=== PATIENT | female | born 1950 | race Caucasian/White ===

== ENCOUNTER → 2017-09-13 | Day surgery (SDC) | payer OTHER ==
[~2017-09-13] VITALS: Ht 167.6 cm; Wt 99.0 kg
[~2017-09-13] MED LIST: ACETAMINOPHEN 1000 MG/100 ML 100 ML IV ONE; ALPR.5 PO; ASPI81TA23 PO; CHLORHEXIDINE GLUCONATE 2 % 1 PACK (2 CLOTHS) TOPICAL PRN; DEXAMETHASONE SOD PHOS 4 MG/ML VIAL IV ONE; GLYCOPYRROLATE 1 MG/5 ML SYRINGE IV PUSH ONE; KETOROLAC TROMETHAMINE 30 MG/ML (IVP) VIAL IV PUSH ONE; LACTATED RINGER'S 1000 ML IV PRN; LIDOCAINE HCL 1% PF 5 ML SYRINGE OTHER ONE; METO25TA3 PO; METOPROLOL TARTRATE 25 MG TAB PO PRN; MIDAZOLAM HCL 2 MG/2 ML VIAL ONE; NEOSTIGMINE 5 MG/5 ML SYRINGE IV PUSH ONE; OMEP40CA2 PO; ONDANSETRON HCL 4 MG/2 ML VIAL IV PUSH ONE; ONDANSETRON HCL 4 MG/2 ML VIAL ONE; PERC5TAB12 PO; POVIDONE IODINE 5% (ANTISEPSIS KIT) 4 APPLICATIONS EACH NARE PRN; PROMETHAZINE INJ 25 MG/ML VIAL ONE; PROPOFOL 200 MG/20 ML AMP IV ONE; ROCURONIUM INJ 50 MG/5 ML SYRINGE IV PUSH ONE; SODIUM CHLORID 0.9% 500 ML IV PRN; ceFAZolin 1,000 MG/NS 100 ML IV SCH
[2017-09-13 09:25] VITALS: PULSE 66
--- NOTE | 2017-09-13 09:44 | PD.OP ---
Operative Report Date of Surgery: Sep 13, 2017 Preoperative Diagnosis: (1) Left ovarian cyst Postoperative Diagnosis: (1) Torsion of left ovary and ovarian pedicle (2) Left ovarian cyst Procedure: laparoscopy bilateral salpingo-oophorectomy Anesthesia: VIRIDIANA Giordano Surgeon: Erma Guzman Retail Selling Specialist(s): Jaleel Resident Surgeon: n/a Operation and Findings: indications: patient had left ovarian cyst of [address] done for other reasons, and remained unchanged for three months on ultrasound done serially. The patient was asymptomatic. Findings: Simple left ovarian cyst with clear fluid drained upon bagging the specimen. The fluid was sent with the ovary for pathology. Right tube and ovary and left tube appeared normal, as did the pelvis to laparoscopic view, Uterus retroverted and sounds to 8 cm. Photos taken. Procedure: The patient was placed supine on the operating room table for induction of general anesthesia with intubation. She was then positioned in low stirrups with SCDs. After prep, draping and time-out, an open-sided speculum was placed in the vagina. The cervix was grasped with a single-tooth tenaculum. The uterus was sounded after cervical dilation. Due to retroverted uterus, HUMI uterine manipulator was chosen and inserted. Dewey catheter was placed and the other instruments were removed. After re-gloving the 10 mm incision was cut through the umbilicus, and Veress needle inserted. After 3.5 liters of CO2, the trochar was placed without incident. The pelvis and abdomen were surveyed. The 5mm trocars were placed in the right and left lower quadrants using transillumination and landmarks to avoid major vessels. Using a grasper and the Harmonic scalpel, the left adnexa was from the pelvic sidewall through the infundibular ligament. It was then detached from the uterus, again with the harmonic device, and placed in an EndoCatch bag. A laparoscopic needle and syringe were used to drain clear fluid from the cyst taking care to avoid spillage. The adnexa was then extracted from the pelvis intact in the EndoCatch bag through the umbilical port. The right tube and ovary were then removed using the same technique and a separate bag. The specimens are sent separately, but the fluid is included in the left adnexal container. The procedure being complete, the left and umbilical ports are removed under direct visualization, the pneumoperitoneum qwas released, and the last port was removed. A 0 Vicryl was used to close the facia of the umbilicus, followed by sub-cuticular closure of the skin at all three sites. Dermabond was used to seal all 3 incisions. The HUMI was removed, as well as the Dewey catheter. The patient was transferred to the PACU awake and breathing on her own. She tolerated the procedure well. Sponge, needle and instrument counts were correct. Erma Guzman MD Sep 13, 2017 09:44
[2017-09-13 13:15] VITALS: BP 140/77; PULSE 54; RESP 16; TEMP 97.9; O2SAT 100
== END | disposition home or self-care (01) ==
LOC: PHSDC 06:17
PROVIDERS: ATTEND Obstetrics & Gynecology
DX: N83.202 Unspecified ovarian cyst, left side (principal); I10 Essential (primary) hypertension
CPT/HCPCS: 00840; 58661; 88305; 88307; J0131; J0690; J1100; J1885; J2250; J2405; J2550; J2710; J3010; J7120